=== PATIENT | female | born 1950 | race Asian ===

== ENCOUNTER 2017-11-15 10:23 | Emergency (ER) | payer MEDICARE, BC ==
[~2017-11-15] VITALS: Ht 157.5 cm; Wt 50.0 kg
[~2017-11-15 10:23] MED LIST: AZIT250T3 PO; DENO60P SQ; FLUT1SPR5 EACH NARE; GING500C; OMEP20TA93 PO; VITATAB9
[2017-11-15 10:36] VITALS: BP 93/40; PULSE 82; RESP 16; TEMP 98.1; O2SAT 97
[2017-11-15 10:38] LABS: AUTOMATED NEUTROPHIL # 2.3 TH/MM3 (1.8-7.7); BASOPHIL # 0.1 TH/MM3 (0-0.2); BASOPHIL % 1.1 % (0.0-2.0); EOSINOPHIL % 0.1 % (0.0-4.0); HEMATOCRIT 35.3 % (35.0-46.0); LYMPH % 37.2 % (9.0-44.0); LYMPHOCYTE # 1.7 TH/MM3 (1.0-4.8); MEAN CELL VOLUME 91.7 FL (80.0-100.0); MEAN CORPUSCULAR HEMOGLOBIN 31.1 PG (27.0-34.0); MEAN PLATELET VOLUME 7.2 FL (7.0-11.0); MONO % 10.4 % (0.0-8.0); MONOCYTE # 0.5 TH/MM3 (0-0.9); NEUT % 51.2 % (16.0-70.0); PLATELET COUNT 236 TH/MM3 (150-450); RED BLOOD COUNT 3.85 MIL/MM3 (4.00-5.30); RED CELL DISTRIBUTION WIDTH 12.9 % (11.6-17.2); WHITE BLOOD COUNT 4.6 TH/MM3 (4.0-11.0)
[2017-11-15] MEDS ORDERED: PREDNISONE EYE (10:44)
[2017-11-15 11:00] VITALS: BP 91/54; PULSE 89; RESP 16; O2SAT 98
[2017-11-15 11:10] LABS: CHLORIDE 99 MEQ/L (98-107); SODIUM (NA) 132 MEQ/L (136-145)
--- NOTE | 2017-11-15 11:10 | PD ---
HPI Chief Complaint: Syncope/Near-Syncope Time Seen by Provider: 10:57 Travel History International Travel<30 days: No Contact w/Intl Traveler<30days: No Traveled to known affect area: No History of Present Illness HPI This 67-year-old female says she felt very weak this morning. She says that since Tuesday she has been sick she has been having fever body aches and cough. She went to an ENT doctor today for a visit for evaluation of some pain she has been having under her left chin. While there she says she got very sweaty and weak and felt like she had to lay down. They called an ambulance for her and sent her here. She has had a sore throat. She is on no medication. [facility] Past Medical History Medical History: Denies Significant Hx Hx Anticoagulant Therapy: No Diabetes: No Diminished Hearing: No Tetanus Vaccination: < 5 Years ?: Not Past Surgical History Eye Surgery: Yes (CATARACT REMOVAL) Social History Alcohol Use: Yes (SOC) Tobacco Use: No Substance Use: No Allergies-Medications (Allergen,Severity, Reaction): Coded Allergies: acetaminophen (Unverified Allergy, Intermediate, Nausea and shakes, 11/15/17 ) dextromethorphan (Unverified Allergy, Intermediate, Nausea shakes, 11/15/17) guaifenesin (Unverified Allergy, Intermediate, Nausea and shakes, 11/15/17) ibuprofen (Unverified Allergy, Intermediate, Nausea and shakes, 11/15/17) iodine (Unverified Allergy, Intermediate, Nausea and shakes, 11/15/17) phenylephrine (Unverified Allergy, Intermediate, Nausea and shakes, 11/15/17 ) pseudoephedrine (Unverified Allergy, Intermediate, Nausea and shakes, ) tetracycline (Unverified Allergy, Intermediate, Nausea and shakes, 11/15/17) codeine (Unverified Allergy, Unknown, Nausea and shakes, 11/15/17) Reported Meds & Prescriptions Reported Meds & Active Scripts Active Reported [Prednisone Eye Gtt] Review of Systems General / Constitutional: Positive: Fever, Chills Eyes: No: Diploplia, Blurred Vision HENT: No: Headaches, Vertigo Cardiovascular: No: Chest Pain or Discomfort Respiratory: Positive: Cough Gastrointestinal: No: Vomiting Genitourinary: No: Urgency, Frequency Musculoskeletal: Positive: Myalgias Skin: No Rash Neurologic: Positive: Weakness, Dizziness Physical Exam Narrative GENERAL: Well-developed female SKIN: Focused skin assessment warm/dry. HEAD: Atraumatic. Normocephalic. EYES: Pupils equal and round. No scleral icterus. No injection or drainage. ENT: No nasal bleeding or discharge. Mucous membranes pink and moist. NECK: Trachea midline. No JVD. CARDIOVASCULAR: Regular rate and rhythm. No murmur appreciated. RESPIRATORY: No accessory muscle use. Clear to auscultation. Breath sounds equal bilaterally. GASTROINTESTINAL: Abdomen soft, non-tender, nondistended. Hepatic and splenic margins not palpable. MUSCULOSKELETAL: No obvious deformities. No clubbing. No cyanosis. No edema. NEUROLOGICAL: Awake and alert. No obvious cranial nerve deficits. Motor grossly within normal limits. Normal speech. PSYCHIATRIC: Appropriate mood and affect; insight and judgment normal. Data Data Last Documented VS Vital Signs Date Time Temp Pulse Resp B/P (MAP) Pulse Ox O2 Delivery O2 Flow Rate FiO2 11/15/17 12:36 93 16 91/55 (67) 89 16 110/54 (72) 94 16 91/55 (67) 11/15/17 11:00 98 Room Air 11/15/17 10:36 98.1 Orders Orders Electrocardiogram (11/15/17 10:29) Complete Blood Count With Diff (11/15/17 10:29) Comprehensive Metabolic Panel (11/15/17 10:29) Iv Access Insert/Monitor (11/15/17 10:29) Urinalysis - C+S If Indicated (11/15/17 11:05) Influenzae A/B Antigen (11/15/17 11:05) Chest, Single Ap (11/15/17 11:05) Sodium Chlor 0.9% 1000 Ml Inj (Ns 1000 M (11/15/17 11:15) Troponin I (11/15/17 10:30) Sodium Chlor 0.9% 1000 Ml Inj (Ns 1000 M (11/15/17 12:30) Orthostatic Vital Signs (11/15/17 12:28) Labs Laboratory Tests Test 11/15/17 10:30 11/15/17 12:40 White Blood Count 4.6 TH/MM3 Red Blood Count 3.85 MIL/MM3 Hemoglobin 12.0 GM/DL Hematocrit 35.3 % Mean Corpuscular Volume 91.7 FL Mean Corpuscular Hemoglobin 31.1 PG Mean Corpuscular Hemoglobin Concent 34.0 % Red Cell Distribution Width 12.9 % Platelet Count 236 TH/MM3 Mean Platelet Volume 7.2 FL Neutrophils (%) (Auto) 51.2 % Lymphocytes (%) (Auto) 37.2 % Monocytes (%) (Auto) 10.4 % Eosinophils (%) (Auto) 0.1 % Basophils (%) (Auto) 1.1 % Neutrophils # (Auto) 2.3 TH/MM3 Lymphocytes # (Auto) 1.7 TH/MM3 Monocytes # (Auto) 0.5 TH/MM3 Eosinophils # (Auto) 0.0 TH/MM3 Basophils # (Auto) 0.1 TH/MM3 CBC Comment DIFF FINAL Differential Comment Blood Urea Nitrogen 8 MG/DL Creatinine 0.64 MG/DL Random Glucose 123 MG/DL Total Protein 8.0 GM/DL Albumin 3.7 GM/DL Calcium Level 8.9 MG/DL Alkaline Phosphatase 45 U/L Aspartate Amino Transf (AST/SGOT) 18 U/L Alanine Aminotransferase (ALT/SGPT) 17 U/L Total Bilirubin 0.3 MG/DL Sodium Level 132 MEQ/L Potassium Level 3.6 MEQ/L Chloride Level 99 MEQ/L Carbon Dioxide Level 23.2 MEQ/L Anion Gap 10 MEQ/L Estimat Glomerular Filtration Rate 93 ML/MIN Troponin I LESS THAN 0.02 NG/ML Urine Collection Type CLEAN CATCH Urine Color YELLOW Urine Turbidity CLEAR Urine pH 6.0 Urine Specific [place] 1.010 Urine Protein TRACE mg/dL Urine Glucose (UA) NEG mg/dL Urine Ketones 15 mg/dL Urine Occult Blood TRACE Urine Nitrite NEG Urine Bilirubin NEG Urine Urobilinogen 0.2 MG/DL Urine Leukocyte Esterase NEG Urine RBC 0-3 /hpf Urine WBC 0-2 /hpf Urine Squamous Epithelial Cells 0-5 /hpf Urine Hyaline Casts 0-2 /lpf Microscopic Urinalysis Comment CULT NOT INDICATED Urine Collection Time 12:40 MDM Medical Decision Making Medical Screen Exam Complete: Yes Emergency Medical Condition: Yes Medical Record Reviewed: Yes Differential Diagnosis Differential includes influenza, viral illness, anemia, electrolyte imbalance, UTI Narrative Course Patient has been given IV fluids. Her white count is normal. Chest x-ray negative. Urine does not show evidence of infection. Test for influenza was done and is negative. Etiology for her symptoms is not clear. Suspect viral illness possibly influenza in spite of the negative test Diagnosis Primary Impression: Viral illness Disposition: 01 DISCHARGE HOME Condition: Stable Tomi Hunter MD Nov 15, 2017 11:10
[2017-11-15 11:14] LABS: ALBUMIN 3.7 GM/DL (3.4-5.0); BICARBONATE 23.2 MEQ/L (21.0-32.0); BLOOD UREA NITROGEN 8 MG/DL (7-18); CALCIUM 8.9 MG/DL (8.5-10.1); GLUCOSE,RANDOM 123 MG/DL (74-106)
[2017-11-15] MEDS ORDERED: SODIUM CHLOR 0.9% 1000 ML INJ 1,000 ML IV ONE ×2 (11:15→12:30)
[2017-11-15 11:17] LABS: ALT (GPT) 17 U/L (10-53); AST (GOT) 18 U/L (15-37); CREATININE 0.64 MG/DL (0.50-1.00); GLOMERULAR FILTRATION RATE 93 ML/MIN (>89)
[2017-11-15 11:19] LABS: TOTAL BILIRUBIN ADULT 0.3 MG/DL (0.2-1.0)
[2017-11-15 11:20] LABS: ALKALINE PHOSPHATASE 45 U/L (45-117)
[2017-11-15 11:29] LABS: TROPONIN I LESS THAN 0.02 NG/ML (0.02-0.05)
--- NOTE | 2017-11-15 11:31 | RADRPT ---
EXAM DATE/TIME: 11/15/2017 11:11 [facility] COMPARISON: No previous studies available for comparison. INDICATIONS : Low blood pressure in MD's office today. Recent flu diagnosis. MEDICAL HISTORY : None. SURGICAL HISTORY : None. ENCOUNTER: Initial ACUITY: 1 day PAIN SCORE: 0/10 LOCATION: chest FINDINGS: A single view of the chest demonstrates the lungs to be symmetrically aerated without evidence of mas s, infiltrate or effusion. The cardiomediastinal contours are unremarkable. Osseous structures are intact. CONCLUSION: No acute cardiopulmonary disease demonstrated. René Ellsworth MD on November 15, 2017 at 11:28 Board Certified Radiologist. This report was verified electronically.
[2017-11-15 12:36] VITALS: BP_SYST 110; BP_SYST 91; BP_DIAS 54; BP_DIAS 55; RESP 16
[2017-11-15 12:50] LABS: BILIRUBIN, URINE NEG (NEG); BLOOD, URINE TRACE (NEG); GLUCOSE,URINE NEG (NEG); KETONE, URINE 15 mg/dL (NEG); NITRITE,URINE NEG (NEG); URINE COLOR YELLOW (YELLW/STRAW); URINE LEUKOCYTE ESTERASE NEG (NEG)
[2017-11-15 12:56] LABS: HYALINE CAST, URINE 0-2 /lpf (RARE); RBC, URINE 0-3 /hpf (0-3); SQUAMOUS EPITHELIAL CELL URINE 0-5 /hpf (0-5); WBC, URINE 0-2 /hpf (0-5)
[2017-11-15 13:35] VITALS: BP 99/53
--- NOTE | 2017-11-15 16:07 | EKG ---
Date Performed: 11/15/2017 Time Performed: 10:49:01 PTAGE: 67 years EKG: Sinus rhythm INDETERMINATE AXIS S1-S2-S3 PATTERN, CONSISTENT WITH PULMONARY DISEASE, RVH, OR NORMAL VARIANT POSSI BLE RIGHT VENTRICULAR CONDUCTION DELAY ABNORMAL ECG NO PREVIOUS TRACING DOCTOR: Raymundo Saeed Interpretating Date/Time 11/15/2017 16:06:14
== END 2017-11-15 13:45 | disposition home or self-care (01) ==
LOC: PHED 10:23
DX: B34.9 Viral infection, unspecified (principal); R94.31 Abnormal electrocardiogram [ECG] [EKG]
CPT/HCPCS: 71045; 80053; 81001; 84484; 85025; 87804; 93005; 96360; 96361; 99284; J7030

== ENCOUNTER 2017-11-19 11:11 | Emergency (ER) | payer MEDICARE, BC ==
[~2017-11-19] VITALS: Ht 157.5 cm; Wt 50.0 kg
[~2017-11-19 11:11] MED LIST changes: -AZIT250T3 PO; -DENO60P SQ; -FLUT1SPR5 EACH NARE; -GING500C; -OMEP20TA93 PO; +PREDNISONE EYE; -VITATAB9
[2017-11-19 11:18] VITALS: BP 131/73; PULSE 76; RESP 16; TEMP 97.7; O2SAT 100
[2017-11-19 11:41] LABS: AUTOMATED NEUTROPHIL # 0.7 TH/MM3 (1.8-7.7); BASOPHIL % 0.3 % (0.0-2.0); EOSINOPHIL % 0.1 % (0.0-4.0); HEMATOCRIT 34.6 % (35.0-46.0); HEMOGLOBIN 11.4 GM/DL (11.6-15.3); LYMPH % 66.7 % (9.0-44.0); LYMPHOCYTE # 2.3 TH/MM3 (1.0-4.8); MEAN CORPUSCULAR HEMOGLOBIN 30.7 PG (27.0-34.0); MEAN PLATELET VOLUME 7.2 FL (7.0-11.0); MONO % 10.2 % (0.0-8.0); MONOCYTE # 0.3 TH/MM3 (0-0.9); NEUT % 22.7 % (16.0-70.0); PLATELET COUNT 289 TH/MM3 (150-450); RED BLOOD COUNT 3.72 MIL/MM3 (4.00-5.30); RED CELL DISTRIBUTION WIDTH 12.5 % (11.6-17.2); WHITE BLOOD COUNT 3.3 TH/MM3 (4.0-11.0)
[2017-11-19 11:50] LABS: CHLORIDE 100 MEQ/L (98-107); SODIUM (NA) 134 MEQ/L (136-145)
[2017-11-19 11:53] LABS: ALBUMIN 3.7 GM/DL (3.4-5.0); BICARBONATE 24.1 MEQ/L (21.0-32.0); BLOOD UREA NITROGEN 9 MG/DL (7-18); CALCIUM 8.9 MG/DL (8.5-10.1); GLUCOSE,RANDOM 101 MG/DL (74-106)
[2017-11-19 11:56] LABS: ALT (GPT) 16 U/L (10-53); AST (GOT) 19 U/L (15-37)
[2017-11-19 11:57] LABS: CREATININE 0.56 MG/DL (0.50-1.00); GLOMERULAR FILTRATION RATE 109 ML/MIN (>89)
[2017-11-19 11:58] LABS: TOTAL BILIRUBIN ADULT 0.4 MG/DL (0.2-1.0); TOTAL PROTEIN 8.1 GM/DL (6.4-8.2)
[2017-11-19 11:59] LABS: ALKALINE PHOSPHATASE 49 U/L (45-117)
--- NOTE | 2017-11-19 12:39 | PD ---
HPI Chief Complaint: General Weakness Time Seen by Provider: 12:36 Travel History International Travel<30 days: No Contact w/Intl Traveler<30days: No Traveled to known affect area: No History of Present Illness HPI Patient presents with complaints of dyspnea and shortness of breath this morning. Reports a vague past medical history. Reports cataract repair October 05 with difficulty with ingestion since. Concerns of dark red blood per rectum. Reports ENT evaluation with hypotension and syncopal episode with ER evaluation on Tuesday for generalized weakness for 4 days with subjective fever body aches and cough. Patient reports blood pressure of 70/40 at the ENT. Workup was negative. Diagnosed with unspecified viral illness. States that on Tuesday she was feeling poorly and her friends called [facility], normal vitals at the time. She denied transportation to the emergency room. On she was feeling better and went shopping for groceries. She woke this morning with shortness of breath. Denies fever. States she felt clammy. Denies any chest pain urinary or bowel symptoms. PFSH Past Medical History Hx Anticoagulant Therapy: No Diabetes: No Diminished Hearing: No Tetanus Vaccination: < 5 Years Influenza Vaccination: No ?: Not Menopausal: Yes Past Surgical History Eye Surgery: Yes (CATARACT REMOVAL) Social History Alcohol Use: Yes (SOC) Tobacco Use: No Substance Use: No Allergies-Medications (Allergen,Severity, Reaction): Coded Allergies: acetaminophen (Unverified Allergy, Intermediate, Nausea and shakes, 11/19/17 ) dextromethorphan (Unverified Allergy, Intermediate, Nausea shakes, 11/19/17) guaifenesin (Unverified Allergy, Intermediate, Nausea and shakes, 11/19/17) ibuprofen (Unverified Allergy, Intermediate, Nausea and shakes, 11/19/17) iodine (Unverified Allergy, Intermediate, Nausea and shakes, 11/19/17) phenylephrine (Unverified Allergy, Intermediate, Nausea and shakes, 11/19/17 ) pseudoephedrine (Unverified Allergy, Intermediate, Nausea and shakes, ) tetracycline (Unverified Allergy, Intermediate, Nausea and shakes, 11/19/17) codeine (Unverified Allergy, Unknown, Nausea and shakes, 11/19/17) Reported Meds & Prescriptions Reported Meds & Active Scripts Active Reported [Prednisone Eye Gtt] Review of Systems General / Constitutional: Positive: Chills, No: Fever Eyes: No: Visual changes HENT: No: Headaches Cardiovascular: No: Chest Pain or Discomfort Respiratory: Positive: Shortness of Breath Gastrointestinal: No: Abdominal Pain Genitourinary: No: Dysuria Musculoskeletal: No: Pain Skin: No Rash Neurologic: No: Weakness Psychiatric: No: Depression Endocrine: No: Polydipsia Hematologic/Lymphatic: No: Easy Bruising Physical Exam Narrative GENERAL: Well-nourished, well-developed patient. SKIN: Focused skin assessment warm/dry. HEAD: Normocephalic. EYES: No scleral icterus. No injection or drainage. NECK: Supple, trachea midline. No JVD or lymphadenopathy. CARDIOVASCULAR: Regular rate and rhythm without murmurs, gallops, or rubs. RESPIRATORY: Breath sounds equal bilaterally. No accessory muscle use. GASTROINTESTINAL: Abdomen soft, non-tender, nondistended. MUSCULOSKELETAL: No cyanosis, or edema. BACK: Nontender without obvious deformity. No CVA tenderness. Data Data Last Documented VS Vital Signs Date Time Temp Pulse Resp B/P (MAP) Pulse Ox O2 Delivery O2 Flow Rate FiO2 11/19/17 13:43 67 16 102/54 (70) 100 Room Air 11/19/17 11:18 97.7 Orders Orders Electrocardiogram (11/19/17 11:20) Complete Blood Count With Diff (11/19/17 11:20) Comprehensive Metabolic Panel (11/19/17 11:20) Iv Access Insert/Monitor (11/19/17 11:20) Urinalysis - C+S If Indicated (11/19/17 11:20) Chest, Single Ap (11/19/17 ) Influenzae A/B Antigen (11/19/17 12:52) Sodium Chlor 0.9% 1000 Ml Inj (Ns 1000 M (11/19/17 13:00) Labs Laboratory Tests Test 11/19/17 11:30 11/19/17 12:45 White Blood Count 3.3 TH/MM3 Red Blood Count 3.72 MIL/MM3 Hemoglobin 11.4 GM/DL Hematocrit 34.6 % Mean Corpuscular Volume 93.0 FL Mean Corpuscular Hemoglobin 30.7 PG Mean Corpuscular Hemoglobin Concent 33.0 % Red Cell Distribution Width 12.5 % Platelet Count 289 TH/MM3 Mean Platelet Volume 7.2 FL Neutrophils (%) (Auto) 22.7 % Lymphocytes (%) (Auto) 66.7 % Monocytes (%) (Auto) 10.2 % Eosinophils (%) (Auto) 0.1 % Basophils (%) (Auto) 0.3 % Neutrophils # (Auto) 0.7 TH/MM3 Lymphocytes # (Auto) 2.3 TH/MM3 Monocytes # (Auto) 0.3 TH/MM3 Eosinophils # (Auto) 0.0 TH/MM3 Basophils # (Auto) 0.0 TH/MM3 CBC Comment AUTO DIFF Differential Comment AUTO DIFF CONFIRMED Blood Urea Nitrogen 9 MG/DL Creatinine 0.56 MG/DL Random Glucose 101 MG/DL Total Protein 8.1 GM/DL Albumin 3.7 GM/DL Calcium Level 8.9 MG/DL Alkaline Phosphatase 49 U/L Aspartate Amino Transf (AST/SGOT) 19 U/L Alanine Aminotransferase (ALT/SGPT) 16 U/L Total Bilirubin 0.4 MG/DL Sodium Level 134 MEQ/L Potassium Level 3.6 MEQ/L Chloride Level 100 MEQ/L Carbon Dioxide Level 24.1 MEQ/L Anion Gap 10 MEQ/L Estimat Glomerular Filtration Rate 109 ML/MIN Urine Collection Type CLEAN CATCH Urine Color YELLOW Urine Turbidity CLEAR Urine pH 6.5 Urine Specific [place] LESS/EQUAL 1.005 Urine Protein NEG mg/dL Urine Glucose (UA) NEG mg/dL Urine Ketones 40 mg/dL Urine Occult Blood NEG Urine Nitrite NEG Urine Bilirubin NEG Urine Urobilinogen 0.2 MG/DL Urine Leukocyte Esterase NEG Urine WBC 0-2 /hpf Urine Squamous Epithelial Cells 0-5 /hpf Microscopic Urinalysis Comment CULT NOT INDICATED Urine Collection Time 12:45 [facility] Medical Decision Making Medical Screen Exam Complete: Yes Emergency Medical Condition: Yes Differential Diagnosis Viral illness, dehydration, malingering Narrative Course Assessment and plan discussed the patient and friends at bedside. EKG reveals sinus rhythm rate of 70. Blood pressures well controlled she is not hypotensive. Hemoccult negative. Labs and imaging reviewed with patient. Patient requesting treatment of cold sore to the right upper lateral lip. Last 72 hours Impressions Chest X-Ray 11/19/17 0000 Signed Impressions: Service Date/Time: Sunday, November 19, 2017 12:57 - CONCLUSION: No evidence of acute air space disease or congestion. Old granulomatous disease. Mild lung hyperinflation. Robert Cisneros MD Diagnosis Primary Impression: Viral syndrome Additional Impressions: Anxiety Dyspnea Qualified Codes: R06.00 - Dyspnea, unspecified HSV infection Patient Instructions: General Instructions Additional Instructions: Encouraged rest fluids, small amount of Xanax for anxiety, topical Zovirax for HSV. [id number] antihistamines for episodes of vertigo. Follow-up with primary care provider. Return to emergency room with any onset of new symptoms. Med/Other Pt SpecificInfo: Prescription(s) given Scripts Acyclovir Topical (Zovirax Topical) 5% Cream 1 APPLIC TOPICAL 5 TIMES A DAY for Mgmt Viral Infection, #5 GM 0 Refills x 4 days. Prov: Morris Kaur MD 11/19/17 Alprazolam (Xanax) 0.25 Mg Tab 0.25 MG PO Q4H Y for ANXIETY for 7 Days, #7 TAB 0 Refills Prov: Morris Kaur MD 11/19/17 Disposition: 01 DISCHARGE HOME Condition: Good Morris Kaur MD Nov 19, 2017 12:39
[2017-11-19 12:46] VITALS: BP 119/51; PULSE 67; RESP 16; O2SAT 100
[2017-11-19 12:49] LABS: BILIRUBIN, URINE NEG (NEG); BLOOD, URINE NEG (NEG); GLUCOSE,URINE NEG (NEG); KETONE, URINE 40 mg/dL (NEG); NITRITE,URINE NEG (NEG); PH, URINE 6.5 (5.0-8.5); URINE COLOR YELLOW (YELLW/STRAW); URINE LEUKOCYTE ESTERASE NEG (NEG)
[2017-11-19 12:59] LABS: SQUAMOUS EPITHELIAL CELL URINE 0-5 /hpf (0-5); WBC, URINE 0-2 /hpf (0-5)
[2017-11-19] MEDS ORDERED: SODIUM CHLOR 0.9% 1000 ML INJ 1,000 ML IV ONE (13:00)
[2017-11-19 13:43] VITALS: BP 102/54; PULSE 67; RESP 16; O2SAT 100
--- NOTE | 2017-11-19 13:44 | RADRPT ---
EXAM DATE/TIME: 11/19/2017 12:57 [facility] COMPARISON: CHEST SINGLE AP, November 15, 2017, 11:11. INDICATIONS : Short of breath. MEDICAL HISTORY : None. SURGICAL HISTORY : None. ENCOUNTER: Initial ACUITY: 1 day PAIN SCORE: 6/10 LOCATION: Bilateral chest FINDINGS: Healed granulomatous disease is noted with left hilar calcification. Lungs mildly hyperinflated but clear without evidence of acute airspace disease or congestion. Heart and mediastinal structures are otherwise stable. CONCLUSION: No evidence of acute air space disease or congestion. Old granulomatous disease. Mild lung hyperinflation. Robert Cisneros MD on November 19, 2017 at 13:40 Board Certified Radiologist. This report was verified electronically.
[2017-11-19] MEDS ORDERED: ALPR.25 PO (14:21)
[2017-11-19] MEDS ORDERED: ZOVI5CRE3 TOPICAL (14:21)
--- NOTE | 2017-11-21 09:46 | EKG ---
Date Performed: 11/19/2017 Time Performed: 11:19:39 PTAGE: 67 years EKG: Sinus rhythm INDETERMINATE AXIS POSSIBLE RIGHT VENTRICULAR CONDUCTION DELAY BORDERLINE ECG PREVIOUS TRACING : 11/15/2017 10.49 Since previous tracing, no significant change. DOCTOR: Raji Doherty Interpretating Date/Time 11/21/2017 09:44:29
== END 2017-11-19 14:40 | disposition home or self-care (01) ==
LOC: PHED 11:11
DX: F41.9 Anxiety disorder, unspecified (principal); R06.00 Dyspnea, unspecified; B00.9 Herpesviral infection, unspecified; R94.31 Abnormal electrocardiogram [ECG] [EKG]
CPT/HCPCS: 71045; 80053; 81001; 85025; 87804; 93005; 96360; 99285; J7030